=== PATIENT | male | born 1940 | race Hispanic/Latino ===

== ENCOUNTER → 2016-06-16 | Outpatient (CLI) | payer OTHER, MEDICARE ==
[2016-06-16 10:39] LABS: HEMOGLOBIN A1C 5.86 % (4.2-6.0); MEAN BLOOD GLUCOSE (CALC) 109.138 mg/dL
[2016-06-16 10:41] LABS: BILIRUBIN,TOTAL 0.9 mg/dL (0.3-1.2); CALCIUM 9.7 mg/dL (8.7-10.7); CREATININE 0.8 mg/dL (0.70-1.50); POTASSIUM 4.1 meq/L (3.8-5.2); TOTAL PROTEIN 6.7 g/dL (6.1-8.0)
[2016-06-16 11:08] LABS: LDL CHOLESTEROL,CALCULATED 71.2 mg/dL
== END ==
LOC: MOB LAB 09:22
PROVIDERS: ATTEND Family Medicine
DX: E08.21 Diabetes mellitus due to underlying condition with diabetic nephropathy (principal); E55.9 Vitamin D deficiency, unspecified; E78.4 Other hyperlipidemia; I10 Essential (primary) hypertension; M79.2 Neuralgia and neuritis, unspecified
CPT/HCPCS: 36415; 80053; 80061; 82306; 83036

== ENCOUNTER → 2016-07-28 | Outpatient (CLI) | payer OTHER, MEDICARE | LOC: MMPC 09:00 | PROVIDERS: ATTEND Family Medicine | DX: M25.511 Pain in right shoulder (principal); M25.512 Pain in left shoulder; M25.561 Pain in right knee; M25.562 Pain in left knee; M54.5 Low back pain | CPT/HCPCS: 99213; G0463 ==

== ENCOUNTER → 2016-08-13 | Outpatient (CLI) | payer OTHER, MEDICARE | LOC: LAB 08:47 | PROVIDERS: ATTEND Family Medicine | DX: E55.9 Vitamin D deficiency, unspecified (principal) | CPT/HCPCS: 36415; 82306 ==

== ENCOUNTER → 2016-08-26 | Outpatient (CLI) | payer OTHER, MEDICARE ==
--- NOTE | 2016-08-26 15:04 | DI ---
PA /LATERAL CHEST X-RAY, 08/26/2016 2:07 PM : Clinical History: Upper respiratory infection. Previous Exam: None at this facility. There is no acute soft tissue or bony abnormality. Heart size is normal. Lungs are clear. Mediastinal structures are normal. There are no pulmonary nodules. Reading: Normal chest x-ray.
== END ==
LOC: MOB RAD 14:08
PROVIDERS: ATTEND Physician Assistant
DX: J06.9 Acute upper respiratory infection, unspecified (principal)
CPT/HCPCS: 71020; 99213; G0463

== ENCOUNTER → 2016-09-16 | Outpatient (CLI) | payer OTHER, MEDICARE | LOC: MMPC 09:00 | PROVIDERS: ATTEND Family Medicine | DX: E11.40 Type 2 diabetes mellitus with diabetic neuropathy, unspecified (principal); I10 Essential (primary) hypertension; E78.5 Hyperlipidemia, unspecified; Z71.3 Dietary counseling and surveillance | CPT/HCPCS: G0108 ==

== ENCOUNTER → 2016-12-04 | Outpatient (CLI) | payer OTHER, MEDICARE | LOC: MMPC 11:11 | PROVIDERS: ATTEND Physician Assistant | DX: H61.23 Impacted cerumen, bilateral (principal); H91.92 Unspecified hearing loss, left ear | CPT/HCPCS: 69209 ×2; 99213; G0463 ==